=== PATIENT | female | born 1970 | race Caucasian/White ===

== ENCOUNTER 2019-02-23 07:10 | Day surgery (SDC) | payer OTHER ==
[2019-02-23] MEDS ORDERED: FENTAnyl 50 MCG/ML VIAL (10:03)
[2019-02-23] MEDS ORDERED: MIDAZOLAM 1 MG/ML 2 ML INJ ×3 (10:03)
== END 2019-02-23 11:04 | disposition home or self-care (01) ==
LOC: GIL 07:10
DX: K92.1 Melena (principal); K64.8 Other hemorrhoids
CPT/HCPCS: 45378; 84703